=== PATIENT | female | born 1970 | race American Indian/Alaskan Native ===

== ENCOUNTER 2020-10-01 11:28 | Inpatient (IN) | payer MEDICAID, OTHER ==
[2020-10-01] MEDS ORDERED: HYDROmorphone 1 MG/1 ML INJ IV ONE (11:33)
[2020-10-01] MEDS ORDERED: ONDANSETRON 4 MG/2 ML INJ IV ONE (11:33)
--- NOTE | 2020-10-01 12:13 | Emergency Department Report ---
ED Abdominal Pain HPI - General Stated Complaint: POSS STROKE PUI?: No Time Seen by Provider: 10/01/20 11:32 - History of Present Illness Initial Comments: CC: abdominal pain HPI: THis is a 50 yo female with hx of HTN who presents with central severe abdominal pain for 3 days. Pain is 12/10. Constant. No change with movement. She underwent colonoscopy and [place] [facility] [place] evaluate for anemia. She denies hematemesis and hematochezia. EKG obtained by EMS. ST elevation reported in leads II, III, AVF. Patient denies chest pain or shortness of breath. CODE STEMI activated prior to patient's arrival. MD Complaint: abdominal pain -: Gradual, days(s) (3 days) Location: periumbilical (Central abdominal pain) Radiation: none Migration to: no migration Severity: severe Severity scale (0 -10): 10 Quality: sharp Consistency: constant Improves With: nothing Worsens With: nothing Associated Symptoms: denies: nausea, vomiting, diarrhea - Related Data Home Medications Medication Instructions Recorded Confirmed Last Taken cloNIDine [Catapres] 0.1 mg PO QHS 09/20/14 09/20/14 09/20/14 11:17 hydroCHLOROthiazide [HCTZ] 09/20/14 09/20/14 Unknown lisinopriL [Zestril] 20 mg PO QDAY 09/20/14 09/20/14 Unknown Allergies Allergy/AdvReac Type Severity Reaction Status Date / Time No Known Allergies Allergy Unverified 09/20/14 11:14 ED Review of Systems ROS: Stated complaint: POSS STROKE Other details as noted in HPI Comment: All other systems reviewed and negative Constitutional: denies: chills, fever, malaise Respiratory: denies: cough, shortness of breath Cardiovascular: denies: chest pain Gastrointestinal: abdominal pain, constipation. denies: vomiting, diarrhea, hematemesis, melena, hematochezia Musculoskeletal: denies: back pain ED Past Medical Hx - Past Medical History Previous Medical History?: Yes Hx Hypertension: Yes Hx Headaches / Migraines: Yes - Surgical History Past Surgical History?: Yes Additional Surgical History: x3 - Family History Family history: hypertension, lung disease - Social History Smoking Status: Current Every Day Smoker Substance Use Type: Alcohol, Non Opiate Pain, Prescribed - Medications Home Medications: Home Medications Medication Instructions Recorded Confirmed Last Taken Type cloNIDine [Catapres] 0.1 mg PO QHS 09/20/14 09/20/14 09/20/14 11:17 History hydroCHLOROthiazide [HCTZ] 09/20/14 09/20/14 Unknown History lisinopriL [Zestril] 20 mg PO QDAY 09/20/14 09/20/14 Unknown History ED Physical Exam - General General appearance: alert, in no apparent distress, anxious - Head Head exam: Present: atraumatic, normocephalic - Eye Eye exam: Present: normal appearance - ENT ENT exam: Present: mucous membranes moist - Neck Neck exam: Present: normal inspection, full ROM - Respiratory Respiratory exam: Present: normal lung sounds bilaterally. Absent: respiratory distress, wheezes, rales, rhonchi - Cardiovascular Cardiovascular Exam: Present: regular rate, normal rhythm, normal heart sounds. Absent: systolic murmur, diastolic murmur, rubs, gallop - GI/Abdominal GI/Abdominal exam: Present: soft, normal bowel sounds. Absent: distended, tenderness, guarding, rebound - Extremities Exam Extremities exam: Present: normal inspection - Neurological Exam Neurological exam: Present: alert, oriented X3 - Psychiatric Psychiatric exam: Present: normal affect, normal mood - Skin Skin exam: Present: warm, dry, intact, normal color. Absent: rash ED Course Vital Signs 10/01/20 10/01/20 10/01/20 11:36 11:46 12:04 Pulse Rate 93 H 80 Respiratory 19 24 Rate Blood Pressure 158/88 158/88 O2 Sat by Pulse 100 85 Oximetry 10/01/20 10/01/20 10/01/20 12:27 12:36 12:46 Pulse Rate Respiratory Rate Blood Pressure 158/88 158/88 158/88 O2 Sat by Pulse 81 L 96 98 Oximetry 10/01/20 10/01/20 10/01/20 13:00 13:16 13:30 Pulse Rate Respiratory Rate Blood Pressure 158/88 138/85 O2 Sat by Pulse 99 99 100 Oximetry 10/01/20 10/01/20 10/01/20 13:45 14:00 14:15 Pulse Rate Respiratory Rate Blood Pressure 138/85 138/85 131/76 O2 Sat by Pulse 100 99 100 Oximetry 10/01/20 10/01/20 10/01/20 14:31 14:45 15:01 Pulse Rate Respiratory Rate Blood Pressure 120/70 120/70 135/87 O2 Sat by Pulse 100 100 100 Oximetry ED Medical Decision Making - Lab Data Result diagrams: 10/01/20 11:33 10/01/20 11:33 - EKG Data -: EKG Interpreted by Me EKG shows normal: sinus rhythm, axis Rate: tachycardia - EKG Data Interpretation: LVH 10/01/20 12:10 EKG obtained 1132 EKG interpreted by me Sinus tachycardia rate 100 bpm normal axis prolonged QTC positive LVH referral made a lateral ST elevation - Radiology Data Radiology results: report reviewed Study Comments [facility] [address] [place] [address] Cat Scan Report Signed Patient: RADHA PHAN MR#: [id number] : 1970 A cct:[id number] Age/Sex: 50 / F ADM Date: 10/01/20 Loc: ED Attending Dr: Ordering Physician: Itzel Zamora MD Date of Service: 10/01/20 Procedure(s): CT abdomen pelvis wo con Accession Number(s): [id number] cc: Itzel Zamora MD CT ABDOMEN AND PELVIS WITHOUT CONTRAST INDICATION / CLINICAL INFORMATION: abdominal pain. TECHNIQUE: Axial CT images were obtained through the abdomen and pelvis without IV contrast. All CT scans at this location are performed using CT dose reduction for ALARA by means of automated exposure control. COMPARISON: None available. FINDINGS: LOWER CHEST: No significant abnormality. LIVER: No significant abnormality. GALLBLADDER: No significant abnormality. BILE DUCTS: No significant abnormality. PANCREAS: No significant abnormality. SPLEEN: No significant abnormality. ADRENALS: No significant abnormality. RIGHT KIDNEY / URETER: No significant abnormality. LEFT KIDNEY / URETER: No significant abnormality. STOMACH / SMALL BOWEL: The stomach appears normal. There are a few prominent loops of fluid-filled small bowel as seen in the right lower quadrant on series 2 image 101 but no definite findings of high-grade obstruction. COLON: No significant abnormality. APPENDIX: The appendix is identified and is gas filled PERITONEUM: No free fluid. No free air. No fluid collection. LYMPH NODES: No significant adenopathy. AORTA / ARTERIES: Mild atherosclerotic calcification without acute abnormality. IVC / VEINS: No significant abnormality. URINARY BLADDER: No significant abnormality. REPRODUCTIVE ORGANS: The uterus is enlarged and globular. No adnexal mass. ADDITIONAL FINDINGS: Tiny fat-containing umbilical hernia. SKELETAL SYSTEM: No significant abnormality. IMPRESSION: 1. Prominent loops of fluid-filled small bowel as seen in the right lower quadrant may represent low grade obstruction and/or enteritis. Recommend clinical correlation. No pneumatosis or free air. 2. Enlarged globular uterus. Signer Name: Jacob Goodwin MD Signed: 10/01/2020 12:50 PM Workstation Name: [email or web address] Transcribed By: DB Dictated By: JACOB GOODWIN MD Electronically Authenticated By: JACOB GOODWIN MD Signed Date/Time: 10/01/20 1250 DD/ 1242 TD/TT: - Medical Decision Making 1. Abdominal pain: CT abdomen pelvis reveals partial small bowel obstruction versus enteritis, CBC reveals leukocytosis without indication of perforation considering patient's previous colonoscopy. I discussed case with general surgeon Dr. Helms. She agrees that presentation not convincing for small bowel obstruction although there is a small possibility with patient surgical history.. Dr. Helms suspects patient had biopsy of the terminal ileum which would explain the CT findings pain. Due to severe pain, patient is admitted for treatment and evaluation. 2. Reported abnormal EKG: I reviewed transmitted EKG prior to patient's arrival. Patient did not have ST elevation. Patient actually had LVH with repolarization abnormality. I spoke with the delivery man. I reviewed the EKG with delivery man. Aging Department Supervisor did not read cardiac tracing. Aging Department Supervisor inappropriately used ST measurement calculation to determine presence of ST elevation. The measurement was inaccurately interpreted. Patient does not have symptoms of acute coronary syndrome. Critical care attestation.: If time is entered above; I have spent that time in minutes in the direct care of this critically ill patient, excluding procedure time. ED Disposition Clinical Impression: Ileus, Enteritis Disposition: OP ADMIT IP TO THIS HOSP Is pt being admited?: Yes Does the pt Need Aspirin: No Condition: Stable
--- NOTE | 2020-10-01 12:54 | Cat Scan Report ---
CT ABDOMEN AND PELVIS WITHOUT CONTRAST INDICATION / CLINICAL INFORMATION: abdominal pain. TECHNIQUE: Axial CT images were obtained through the abdomen and pelvis without IV contrast. All CT scans at this location are performed using CT dose reduction for ALARA by means of automated exposure control. COMPARISON: None available. FINDINGS: LOWER CHEST: No significant abnormality. LIVER: No significant abnormality. GALLBLADDER: No significant abnormality. BILE DUCTS: No significant abnormality. PANCREAS: No significant abnormality. SPLEEN: No significant abnormality. ADRENALS: No significant abnormality. RIGHT KIDNEY / URETER: No significant abnormality. LEFT KIDNEY / URETER: No significant abnormality. STOMACH / SMALL BOWEL: The stomach appears normal. There are a few prominent loops of fluid-filled sm all bowel as seen in the right lower quadrant on series 2 image 101 but no definite findings of high- grade obstruction. COLON: No significant abnormality. APPENDIX: The appendix is identified and is gas filled PERITONEUM: No free fluid. No free air. No fluid collection. LYMPH NODES: No significant adenopathy. AORTA / ARTERIES: Mild atherosclerotic calcification without acute abnormality. IVC / VEINS: No significant abnormality. URINARY BLADDER: No significant abnormality. REPRODUCTIVE ORGANS: The uterus is enlarged and globular. No adnexal mass. ADDITIONAL FINDINGS: Tiny fat-containing umbilical hernia. SKELETAL SYSTEM: No significant abnormality. IMPRESSION: 1. Prominent loops of fluid-filled small bowel as seen in the right lower quadrant may represent low grade obstruction and/or enteritis. Recommend clinical correlation. No pneumatosis or free air. 2. Enlarged globular uterus. Signer Name: Jacob Goodwin MD Signed: 10/01/2020 12:50 PM Workstation Name: [id number]
[2020-10-01 13:06] LABS: Blood Urea Nitrogen 9 mg/dL (7-17); Calcium 10.3 mg/dL (8.4-10.2); Hemolysis Index 14
[2020-10-01 13:11] LABS: Hematocrit 35.8 % (30.3-42.9); Hemoglobin 11.3 gm/dl (10.1-14.3); Mean Corpuscular HGB Conc 32 % (30-34); Mean Corpuscular Volume 74 fl (79-97); Platelet Count 304 K/mm3 (140-440); Red Blood Count 4.85 M/mm3 (3.65-5.03)
[2020-10-01 13:13] LABS: BUN/Creatinine Ratio 13
[2020-10-01 13:25] LABS: Red Cell Distribution Width 39.1 % (13.2-15.2)
[2020-10-01] MEDS ORDERED: SODIUM CHLORIDE 0.9% 1000 ML 1,000 ML IV ONE (14:07)
[2020-10-01 15:29] LABS: Anisocytosis 3+; Band Neutrophils # (Manual) 0.8 K/mm3; Hypochromasia 1+; Total Cells Counted 100
[2020-10-01 15:30] LABS: Poikilocytosis 3+; Spherocytes 1+
[2020-10-01 15:31] LABS: Ovalocytes 1+; Platelet Estimate Consistent w Auto; Target Cells 1+
--- NOTE | 2020-10-01 15:46 | Event Note ---
Date: 10/01/20 Went to see patient at 15:40 but not present in room. Case was discussed with Dr. Zhou. Ct reviewed - no free air, internal hernia, pneumatosis, free fluid - mildly dilated RLQ small bowel loops. [place] [facility] [place]. Pt being admitted for observation. Will see in am.
[2020-10-01] MEDS ORDERED: ALBUTEROL 2.5 MG/3 ML NEBU IH PRN (16:24)
[2020-10-01] MEDS ORDERED: ONDANSETRON 4 MG/2 ML INJ IV PRN (16:24)
[2020-10-01] MEDS ORDERED: cloNIDine 0.1 MG TAB PO ONE (17:40)
--- NOTE | 2020-10-01 19:09 | History and Physical Report ---
History of Present Illness Date of admission: 10/01/20 16:25 Chief complaint: My stomach hurts History of present illness: 50 YO Female with HTN, Nicotine Dependence, Migraine SARAVIA presents ED for evaluation. Patient reports "my stomach hurts". Patient states that she has experienced abdominal pain over the past 3 days with persistent symptoms over the same timeframe. Patient states the pain is 12/10, constant, not worsened with movement, not relieved with rest. EMS was notified and upon arrival the patient was found to be in distress and subsequently transported to [facility] for further care and evaluation of the aforementioned symptoms. The patient was seen and evaluated in the emergency department. All lab and imaging studies reviewed. Patient underwent CT scan of the abdomen and pelvis which showed evidence of a partial small bowel obstruction. Patient admitted to surgical fl oor due to increased risk of worsening symptoms. Surgical team consulted in ED. Patient denies fever, chills, chest pain, palpitation, productive cough, skin rash, recent ill contacts, known exposure to COVID-19. No prior admission for review. All medication listed at time of admission has been reconciled. Past History Past Medical History: hypertension, migraines Past Surgical History: Social history: single, smoking Family history: diabetes, hypertension Medications and Allergies Allergies Allergy/AdvReac Type Severity Reaction Status Date / Time No Known Allergies Allergy Verified 10/01/20 18:13 Home Medications Medication Instructions Recorded Confirmed Last Taken Type cloNIDine [Catapres] 0.1 mg PO QHS 09/20/14 09/20/14 09/20/14 11:17 History hydroCHLOROthiazide [HCTZ] 09/20/14 09/20/14 Unknown History lisinopriL [Zestril] 20 mg PO QDAY 09/20/14 09/20/14 Unknown History Active Meds: Active Medications Acetaminophen (Acetaminophen 325 Mg Tab) 650 mg PO Q4H PRN PRN Reason: Pain MILD(1-3)/Fever >100.5/SARAVIA Albuterol (Albuterol 2.5 Mg/3 Ml Nebu) 2.5 mg IH Q4H PRN PRN Reason: Shortness Of Breath Clonidine HCl (Clonidine 0.1 Mg Tab) 0.1 mg PO QHS LAY Hydromorphone HCl (Hydromorphone 1 Mg/1 Ml Inj) 0.5 mg IV Q12H PRN PRN Reason: Pain , Severe (7-10) Sodium Chloride (Nacl 0.9% 1000 Ml) 1,000 mls @ 125 mls/hr IV DIRECT LAY Lisinopril (Lisinopril 20 Mg Tab) 20 mg PO QDAY [facility] Ondansetron HCl (Ondansetron 4 Mg/2 Ml Inj) 4 mg IV Q8H PRN PRN Reason: Nausea And Vomiting Oxycodone/Acetaminophen (Oxycodone /Acetaminophen 5-325mg Tab) 1 tab PO Q12H PRN PRN Reason: Pain, Moderate (4-6) Sodium Chloride (Sodium Chloride 0.9% 10 Ml Flush Syringe) 10 ml IV BID LAY Sodium Chloride (Sodium Chloride 0.9% 10 Ml Flush Syringe) 10 ml IV PRN PRN PRN Reason: LINE FLUSH Review of Systems Constitutional: no weight loss, no weight gain, no fever, no chills Ears, nose, mouth and throat: no ear pain, no ear discharge, no decreased hearing, no nose pain, no nasal discharge Breasts: no change in shape, no swelling, no mass Cardiovascular: no chest pain, no palpitations, no syncope, no lightheadedness Respiratory: no cough, no excessive sputum, no hemoptysis Gastrointestinal: abdominal pain, no nausea, no diarrhea, no change in bowel habits, no hematemesis, no BRBPR, no melena, no loss of appetite Genitourinary Female: no pelvic pain, no flank pain, no dysuria, no urinary frequency, no urgency Rectal: no pain, no incontinence, no bleeding Musculoskeletal: no neck stiffness, no neck pain, no shooting arm pain, no shooting leg pain Integumentary: no rash, no pruritis, no sores, no wounds, no jaundice Neurological: no head injury, no paralysis, no weakness, no numbness, no tingling, no seizures, no syncope, no tremors Psychiatric: no anxiety, no memory loss, no sleep disturbances, no insomnia, no hypersomnia, no change in appetite, no suicidal ideation, no disorientation Endocrine: no cold intolerance, no polyphagia, no excessive thirst, no polyuria, no excessive sweating Hematologic/Lymphatic: no easy bruising Allergic/Immunologic: no urticaria, no allergic rhinitis, no wheezing Exam - Constitutional Vitals: Temp Pulse Resp BP Pulse Ox 82 24 178/95 100 07/26/21 18:08 10/01/20 11:46 10/01/20 18:41 10/01/20 18:41 General appearance: Present: mild distress - EENT Eyes: Present: PERRL ENT: hearing intact, clear oral mucosa - Neck Neck: Present: supple, normal ROM - Respiratory Respiratory effort: normal Respiratory: bilateral: CTA - Cardiovascular Heart Sounds: Present: S1 & S2. Absent: rub, click - Extremities Extremities: pulses symmetrical, No edema Peripheral Pulses: within normal limits - Abdominal General gastrointestinal: Present: soft, non-tender, non-distended, normal bowel sounds Female genitourinary: Present: normal - Integumentary Integumentary: Present: clear, warm, dry - Musculoskeletal Musculoskeletal: gait normal, strength equal bilaterally - Psychiatric Psychiatric: appropriate mood/affect, intact judgment & insight - Neurologic Neurologic: CNII-XII intact, moves all extremities Results - Labs CBC & Chem 7: 10/01/20 11:33 10/01/20 11:33 Labs: Abnormal lab results 10/01/20 10/01/20 Range/Units 11:33 11:33 WBC 19.3 H (4.5-11.0) K/mm3 MCV 74 L (79-97) fl MCH 23 L (28-32) pg RDW 39.1 H (13.2-15.2) % Seg Neuts % (Manual) 93.0 H (40.0-70.0) % Seg Neutrophils # Man 17.9 H (1.8-7.7) K/mm3 Lymphocytes # (Manual) 0.0 L (1.2-5.4) K/mm3 Sodium 132 L (137-145) mmol/L Potassium 3.2 L (3.6-5.0) mmol/L Chloride 97.4 L (98-107) mmol/L Glucose 101 H (65-100) mg/dL Calcium 10.3 H (8.4-10.2) mg/dL Lipase 9 L (13-60) units/L Assessment and Plan - Patient Problems (1) Partial small bowel obstruction Current Visit: Yes Status: Acute Plan to address problem: CT scan abdomen and pelvis, serial abdominal exam, bowel rest, IV fluid resuscitation therapy, pain control, surgical team consulted in ED. NG tube as per surgical team recommendations. (2) Nicotine dependence Current Visit: Yes Status: Acute Qualifiers: Nicotine product type: cigarettes Substance use status: in withdrawal Qualified Code(s): F17.213 - Nicotine dependence, cigarettes, with withdrawal Plan to address problem: Smoking cessation counseling, supportive care, behavior change counseling, +15 minutes (3) Ileus Current Visit: Yes Status: Acute Plan to address problem: Supportive care, serial abdominal exam, surgical team consulted, CT scan abdomen and pelvis, bowel rest, IV fluid resuscitation therapy, early ambulation, (4) DVT prophylaxis Current Visit: Yes Status: Acute Plan to address problem: SCD to bilateral lower extremities while in bed, patient is ambulatory
[2020-10-01] MEDS: ACETAMINOPHEN 325 MG TAB PO PRN (19:38)
[2020-10-01] MEDS: HYDROmorphone 1 MG/1 ML INJ IV PRN (19:38)
[2020-10-01 22:31] LABS: Bacteria,Urine 1+ /HPF (Negative); Bilirubin,Urine NEG (Negative); Blood,Urine LG (Negative); Color,Urine Amber (Yellow); Mucus,Urine 1+ /HPF
[2020-10-01 22:48] LABS: Amphetamine Screen,Urine Negative; Benzodiazepines Screen,Urine Negative; Cocaine Screen,Urine Negative; Methadone Screen,Urine Negative; Opiate Screen,Urine Negative
[2020-10-01 23:00] LABS: Cannabinoid Screen,Urine Positive
[2020-10-01 23:02] LABS: WBC,Urine > 182.0 /HPF (0.0-6.0)
[2020-10-01] MEDS: cloNIDine 0.1 MG TAB PO SCH (23:37)
[2020-10-01] MEDS: SODIUM CHLORIDE 0.9% 1000 ML 1,000 ML IV SCH (23:48)
[2020-10-02] MEDS ORDERED: cefTRIAXone/NS 1 GM/50 ML 1 GM/50 ML BAG IV ONE
[2020-10-02] MEDS ORDERED: MORPHINE 4 MG/1 ML INJ IV ONE (03:00)
[2020-10-02 05:46] LABS: Blood Urea Nitrogen 8 mg/dL (7-17); Hemolysis Index 0
[2020-10-02 05:49] LABS: BUN/Creatinine Ratio 11
[2020-10-02] MEDS: HYDROmorphone 1 MG/1 ML INJ IV PRN (08:39)
--- NOTE | 2020-10-02 08:45 | XRay Report ---
ABDOMEN 1 VIEW INDICATION / CLINICAL INFORMATION: Abdominal pain. COMPARISON: CT 10/01/2020. FINDINGS: TUBES / LINES: None. BOWEL GAS PATTERN: Gas distended loop of suspected distal ileum within the right lower abdomen, not s ignificantly changed from comparison CT. FREE AIR / EXTRALUMINAL GAS: None seen. ADDITIONAL FINDINGS: No significant additional findings. IMPRESSION: Gas-distended loop of suspected distal ileum within the right lower abdomen, not significantly change d from recent CT. Signer Name: Omer Griffin MD Signed: 10/02/2020 8:40 AM Workstation Name: [id number]
--- NOTE | 2020-10-02 08:49 | Progress Note ---
Assessment and Plan Assessment and plan: -- Partial small bowel obstruction Current Visit: Yes Status: Acute CT scan abdomen and pelvis, serial abdominal exam, bowel rest, IV fluid resuscitation therapy, pain control, surgical team consulted NG tube as per surgical team recommendations. --Hypokalemia; Current Visit: Yes Status: Acute replenished with IV KCl 10 mEq x 4 doses total 40 mEq Closely monitor electrolytes --Nicotine dependence Current Visit: Yes Status: Acute Smoking cessation counseling, supportive care, behavior change counseling, +15 minutes --Ileus Current Visit: Yes Status: Acute Supportive care, serial abdominal exam, surgical team consulted, CT scan abdomen and pelvis, bowel rest, IV fluid resuscitation therapy, early ambulation, --DVT prophylaxis Current Visit: Yes Status: Acute SCD to bilateral lower extremities while in bed, patient is ambulatory We will follow surgery evaluation recommendations Closely monitor the patient and adjust management as needed Plan of care reviewed with the patient and her nurse History Interval history: I have seen and examined the patient at the bedside Patient's chart and medications reviewed Patient is admitted with small bowel obstruction N.p.o. status Vital signs noted Hospitalist Physical - Constitutional Vitals: Temp Pulse Resp BP Pulse Ox 99.0 F 74 16 164/92 97 10/02/20 08:32 10/02/20 08:32 10/02/20 08:32 10/02/20 08:32 10/02/20 08:32 General appearance: Present: mild distress, well-nourished - EENT Eyes: Present: PERRL, EOM intact - Neck Neck: Present: supple, normal ROM - Respiratory Respiratory effort: normal Respiratory: bilateral: diminished, negative: rales, rhonchi, wheezing - Cardiovascular Rhythm: regular Heart Sounds: Present: S1 & S2 - Extremities Extremities: no ischemia, No edema - Abdominal General gastrointestinal: soft, non-tender, tender (Mild vague tenderness no guarding no rigidity), non-distended - Integumentary Integumentary: Present: clear, warm - Psychiatric Psychiatric: appropriate mood/affect, cooperative - Neurologic Neurologic: CNII-XII intact, moves all extremities Results - Labs CBC & Chem 7: 10/02/20 08:47 10/02/20 04:38 Labs: Laboratory Last Values WBC 19.3 K/mm3 (4.5-11.0) H 10/01/20 11:33 RBC 4.85 M/mm3 (3.65-5.03) 10/01/20 11:33 Hgb 11.3 gm/dl (10.1-14.3) 10/01/20 11:33 Hct 35.8 % (30.3-42.9) 10/01/20 11:33 MCV 74 fl (79-97) L 10/01/20 11:33 MCH 23 pg (28-32) L 10/01/20 11:33 MCHC 32 % (30-34) 10/01/20 11:33 RDW 39.1 % (13.2-15.2) H 10/01/20 11:33 Plt Count 304 K/mm3 (140-440) 10/01/20 11:33 Add Manual Diff Complete 10/01/20 11:33 Total Counted 100 10/01/20 11:33 Seg Neuts % (Manual) 93.0 % (40.0-70.0) H 10/01/20 11:33 Band Neutrophils % 4.0 % 10/01/20 11:33 Monocytes % (Manual) 2.0 % (0.0-7.3) 10/01/20 11:33 Eosinophils % (Manual) 1.0 % (0.0-4.3) 10/01/20 11:33 Nucleated RBC % Not Reportable 10/01/20 11:33 Seg Neutrophils # Man 17.9 K/mm3 (1.8-7.7) H 10/01/20 11:33 Band Neutrophils # 0.8 K/mm3 10/01/20 11:33 Lymphocytes # (Manual) 0.0 K/mm3 (1.2-5.4) L 10/01/20 11:33 Abs React Lymphs (Man) 0.0 K/mm3 10/01/20 11:33 Monocytes # (Manual) 0.4 K/mm3 (0.0-0.8) 10/01/20 11:33 Eosinophils # (Manual) 0.2 K/mm3 (0.0-0.4) 10/01/20 11:33 Basophils # (Manual) 0.0 K/mm3 (0.0-0.1) 10/01/20 11:33 Metamyelocytes # 0.0 K/mm3 10/01/20 11:33 Myelocytes # 0.0 K/mm3 10/01/20 11:33 Promyelocytes # 64.0 K/mm3 10/01/20 11:33 Blast Cells # 0.0 K/mm3 10/01/20 11:33 WBC Morphology Not Reportable 10/01/20 11:33 Hypersegmented Neuts Not Reportable 10/01/20 11:33 Hyposegmented Neuts Not Reportable 10/01/20 11:33 Hypogranular Neuts Not Reportable 10/01/20 11:33 Smudge Cells Not Reportable 10/01/20 11:33 Toxic Granulation Not Reportable 10/01/20 11:33 Toxic Vacuolation Not Reportable 10/01/20 11:33 Dohle Bodies Not Reportable 10/01/20 11:33 Pelger-Huet Anomaly Not Reportable 10/01/20 11:33 Alphonso Rods Not Reportable 10/01/20 11:33 Platelet Estimate Consistent w auto 10/01/20 11:33 Clumped Platelets Not Reportable 10/01/20 11:33 Plt Clumps, EDTA Not Reportable 10/01/20 11:33 Large Platelets Not Reportable 10/01/20 11:33 Giant Platelets Not Reportable 10/01/20 11:33 Platelet Satelliting Not Reportable 10/01/20 11:33 Plt Morphology Comment Not Reportable 10/01/20 11:33 RBC Morphology Not Reportable 10/01/20 11:33 Dimorphic RBCs Not Reportable 10/01/20 11:33 Polychromasia Not Reportable 10/01/20 11:33 Hypochromasia 1+ 10/01/20 11:33 Poikilocytosis 3+ 10/01/20 11:33 Anisocytosis 3+ 10/01/20 11:33 Microcytosis 1+ 10/01/20 11:33 Macrocytosis Not Reportable 10/01/20 11:33 Spherocytes 1+ 10/01/20 11:33 Pappenheimer Bodies Not Reportable 10/01/20 11:33 Sickle Cells Not Reportable 10/01/20 11:33 Target Cells 1+ 10/01/20 11:33 Tear Drop Cells Not Reportable 10/01/20 11:33 Ovalocytes 1+ 10/01/20 11:33 Helmet Cells Not Reportable 10/01/20 11:33 [place] Bodies Not Reportable 10/01/20 11:33 [place] Rings Not Reportable 10/01/20 11:33 [place] Cells Not Reportable 10/01/20 11:33 Bite Cells Not Reportable 10/01/20 11:33 Crenated Cell Not Reportable 10/01/20 11:33 Elliptocytes Not Reportable 10/01/20 11:33 Acanthocytes (Spur) Not Reportable 10/01/20 11:33 Rouleaux Not Reportable 10/01/20 11:33 Hemoglobin C Crystals Not Reportable 10/01/20 11:33 Schistocytes Not Reportable 10/01/20 11:33 Malaria parasites Not Reportable 10/01/20 11:33 Jude Bodies Not Reportable 10/01/20 11:33 Hem Pathologist Commnt No 10/01/20 11:33 Sodium 135 mmol/L (137-145) L 10/02/20 04:38 Potassium 3.3 mmol/L (3.6-5.0) L 10/02/20 04:38 Chloride 104.3 mmol/L (98-107) 10/02/20 04:38 Carbon Dioxide 20 mmol/L (22-30) L 10/02/20 04:38 Anion Gap 14 mmol/L 10/02/20 04:38 BUN 8 mg/dL (7-17) 10/02/20 04:38 Creatinine 0.7 mg/dL (0.6-1.2) 10/02/20 04:38 Estimated GFR > 60 ml/min 10/02/20 04:38 BUN/Creatinine Ratio 11 % 10/02/20 04:38 Glucose 77 mg/dL (65-100) 10/02/20 04:38 Calcium 9.0 mg/dL (8.4-10.2) 10/02/20 04:38 Lipase 9 units/L (13-60) L 10/01/20 11:33 Urine Color Lizabeth (Yellow) 10/01/20 22:03 Urine Turbidity Cloudy (Clear) 10/01/20 22:03 Urine pH 5.0 (5.0-7.0) 10/01/20 22:03 Ur Specific [place] 1.014 (1.003-1.030) 10/01/20 22:03 Urine Protein 100 mg/dl mg/dL (Negative) 10/01/20 22:03 Urine Glucose (UA) Neg mg/dL (Negative) 10/01/20 22:03 Urine Ketones Tr mg/dL (Negative) 10/01/20 22:03 Urine Blood Lg (Negative) 10/01/20 22:03 Urine Nitrite Pos (Negative) 10/01/20 22:03 Urine Bilirubin Neg (Negative) 10/01/20 22:03 Urine Urobilinogen 4.0 mg/dL (<2.0) 10/01/20 22:03 Ur Leukocyte Esterase Lg (Negative) 10/01/20 22:03 Urine WBC (Auto) > 182.0 /HPF (0.0-6.0) H 10/01/20 22:03 Urine RBC (Auto) 75.0 /HPF (0.0-6.0) 10/01/20 22:03 U Epithel Cells (Auto) 3.0 /HPF (0-13.0) 10/01/20 22:03 Urine Bacteria (Auto) 1+ /HPF (Negative) 10/01/20 22:03 Urine WBC Clumps 3+ /HPF 10/01/20 22:03 Urine Mucus 1+ /HPF 10/01/20 22:03 Urine Yeast (Budding) 2+ /HPF 10/01/20 22:03 Urine Opiates Screen Negative 10/01/20 22:03 Urine Methadone Screen Negative 10/01/20 22:03 Ur Barbiturates Screen Negative 10/01/20 22:03 Ur Phencyclidine Scrn Negative 10/01/20 22:03 Ur Amphetamines Screen Negative 10/01/20 22:03 U Benzodiazepines Scrn Negative 10/01/20 22:03 Urine Cocaine Screen Negative 10/01/20 22:03 U Marijuana (THC) Screen Positive 10/01/20 22:03 Drugs of Abuse Note Disclamer 10/01/20 22:03 Active Medications - Current Medications Current Medications: Generic Name Dose Route Start Last Admin Trade Name Freq PRN Reason Stop Dose Admin Acetaminophen 650 mg 10/01/20 16:24 10/01/20 19:38 Acetaminophen 325 Mg Tab PO 650 mg Q4H PRN Administration Pain MILD(1-3)/Fever >100.5/SARAVIA Albuterol 2.5 mg 10/01/20 16:24 Albuterol 2.5 Mg/3 Ml Nebu IH Q4H PRN Shortness Of Breath Clonidine HCl 0.1 mg 10/01/20 22:00 10/01/20 23:37 Clonidine 0.1 Mg Tab PO Not Given QHS LAY Hydromorphone HCl 0.5 mg 10/01/20 16:24 10/02/20 08:39 Hydromorphone 1 Mg/1 Ml Inj IV 0.5 mg Q12H PRN Administration Pain , Severe (7-10) Sodium Chloride 1,000 mls @ 125 mls/hr 10/01/20 16:30 10/02/20 08:36 Nacl 0.9% 1000 Ml IV Infused DIRECT LAY Infusion Lisinopril 20 mg 10/02/20 10:00 Lisinopril 20 Mg Tab PO QDAY PENDING SALE TO [facility] Ondansetron HCl 4 mg 10/01/20 16:24 Ondansetron 4 Mg/2 Ml Inj IV Q8H PRN Nausea And Vomiting Oxycodone/Acetaminophen 1 tab 10/01/20 16:24 Oxycodone /Acetaminophen 5-325mg Tab PO Q12H PRN Pain, Moderate (4-6) Sodium Chloride 10 ml 10/01/20 22:00 10/01/20 22:05 Sodium Chloride 0.9% 10 Ml Flush Syringe IV 10 ml BID LAY Administration Sodium Chloride 10 ml 10/01/20 16:24 Sodium Chloride 0.9% 10 Ml Flush Syringe IV PRN PRN LINE FLUSH
[2020-10-02 09:07] LABS: Hematocrit 31.6 % (30.3-42.9); Hemoglobin 9.7 gm/dl (10.1-14.3); Mean Corpuscular HGB Conc 31 % (30-34); Mean Corpuscular Volume 74 fl (79-97); Platelet Count 360 K/mm3 (140-440); Red Blood Count 4.27 M/mm3 (3.65-5.03)
[2020-10-02 09:25] LABS: Red Cell Distribution Width 39.3 % (13.2-15.2)
--- NOTE | 2020-10-02 10:18 | Electrocardiograph Report ---
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
[2020-10-02] MEDS: POTASSIUM CHLORIDE 10 MEQ 10 MEQ/100 ML BAG IV SCH ×4 (10:54→14:15)
[2020-10-02] MEDS: LISINOPRIL 20 MG TAB PO SCH (10:54)
--- NOTE | 2020-10-02 11:21 | Consultation ---
History of Present Illness Consult date: 10/02/20 Chief complaint: Abdominal pain - History of present illness History of present illness: 50-year-old female with past medical history of hypertension who presented to the ER yesterday for abdominal pain. The patient states she was having severe sharp right lower quadrant pain radiating to the suprapubic area into the back that started 4 days ago. The patient states that 1 week ago she had a colonoscopy and endoscopy for work-up of anemia along with blood transfusion. Patient states biopsies were performed and she was given an Rx for protonix. She states that a few days later she started to experience this abdominal pain. She has never had pain like this in the past. She states that it feels better when she compresses on the abdomen. She has not had a bowel movement since the colonoscopy. She is passing flatus. She states it has been difficult for her to eat because it feels like the pain is made worse. She denies nausea or vomiting. She denies fevers or chills. Today she states that pain is mildly improved. She feels hungry. Past History Past Medical History: hypertension, migraines Past Surgical History: Social history: single, smoking Family history: diabetes, hypertension Medications and Allergies Allergies Allergy/AdvReac Type Severity Reaction Status Date / Time No Known Allergies Allergy Verified 10/01/20 18:13 Home Medications Medication Instructions Recorded Confirmed Last Taken Type hydroCHLOROthiazide [HCTZ] 25 mg DAILY 09/20/14 10/02/20 Unknown History Amlodipine Besylate [Norvasc] 10 mg PO DAILY 10/02/20 10/02/20 Unknown History Active Meds: Active Medications Acetaminophen (Acetaminophen 325 Mg Tab) 650 mg PO Q4H PRN PRN Reason: Pain MILD(1-3)/Fever >100.5/SARAVIA Last Admin: 10/01/20 19:38 Dose: 650 mg Documented by: Albuterol (Albuterol 2.5 Mg/3 Ml Nebu) 2.5 mg IH Q4H PRN PRN Reason: Shortness Of Breath Bisacodyl (Bisacodyl 10 Mg Rect Supp) 10 mg ME ONCE ONE Stop: 10/02/20 11:18 Clonidine HCl (Clonidine 0.1 Mg Tab) 0.1 mg PO QHS LAY Last Admin: 10/01/20 23:37 Dose: Not Given Documented by: Hydromorphone HCl (Hydromorphone 1 Mg/1 Ml Inj) 0.5 mg IV Q12H PRN PRN Reason: Pain , Severe (7-10) Last Admin: 10/02/20 08:39 Dose: 0.5 mg Documented by: Sodium Chloride (Nacl 0.9% 1000 Ml) 1,000 mls @ 125 mls/hr IV DIRECT [facility] Last Infusion: 10/02/20 08:36 Dose: Infused Documented by: Potassium Chloride (Kcl 10meq/100ml) 10 meq in 100 mls @ 100 mls/hr IV Q1H [facility] Stop: 10/02/20 13:59 Last Admin: 10/02/20 10:54 Dose: 100 mls/hr Documented by: Lisinopril (Lisinopril 20 Mg Tab) 20 mg PO QDAY [facility] Last Admin: 10/02/20 10:54 Dose: Not Given Documented by: Ondansetron HCl (Ondansetron 4 Mg/2 Ml Inj) 4 mg IV Q8H PRN PRN Reason: Nausea And Vomiting Oxycodone/Acetaminophen (Oxycodone /Acetaminophen 5-325mg Tab) 1 tab PO Q12H PRN PRN Reason: Pain, Moderate (4-6) Pantoprazole Sodium (Pantoprazole 40 Mg Tab) 40 mg PO QDAC [facility] Sodium Chloride (Sodium Chloride 0.9% 10 Ml Flush Syringe) 10 ml IV BID [facility] Last Admin: 10/02/20 10:54 Dose: 10 ml Documented by: Sodium Chloride (Sodium Chloride 0.9% 10 Ml Flush Syringe) 10 ml IV PRN PRN PRN Reason: LINE FLUSH Review of Systems All systems: negative (10 point ROS performed and negative except for that listed in HPI) Exam Vital Signs Pulse Resp 93 H 19 10/01/20 11:36 10/01/20 11:36 Narrative exam: Gen.: Awake, alert, oriented x3. No apparent distress ENT: Trachea midline. No lymphadenopathy. No scleral icterus or conjunctival pallor CV: S1, S2 present Respiratory: No audible wheezes Abdomen: Soft, nondistended, mild tenderness to palpation of the right upper quadrant, right lower quadrant, suprapubic region, right flank. No rebound, rigidity, guarding Extremities: No clubbing, cyanosis, edema Results - Labs 10/02/20 08:47 10/02/20 04:38 Abnormal lab results 10/01/20 10/01/20 10/01/20 Range/Units 11:33 11:33 22:03 WBC 19.3 H (4.5-11.0) K/mm3 Hgb (10.1-14.3) gm/dl MCV 74 L (79-97) fl MCH 23 L (28-32) pg RDW 39.1 H (13.2-15.2) % Seg Neuts % (Manual) 93.0 H (40.0-70.0) % Seg Neutrophils # Man 17.9 H (1.8-7.7) K/mm3 Lymphocytes # (Manual) 0.0 L (1.2-5.4) K/mm3 Sodium 132 L (137-145) mmol/L Potassium 3.2 L (3.6-5.0) mmol/L Chloride 97.4 L (98-107) mmol/L Carbon Dioxide (22-30) mmol/L Glucose 101 H (65-100) mg/dL Calcium 10.3 H (8.4-10.2) mg/dL Lipase 9 L (13-60) units/L Urine WBC (Auto) > 182.0 H (0.0-6.0) /HPF 10/02/20 10/02/20 Range/Units 04:38 08:47 WBC 19.5 H (4.5-11.0) K/mm3 Hgb 9.7 L (10.1-14.3) gm/dl MCV 74 L (79-97) fl MCH 23 L (28-32) pg RDW 39.3 H (13.2-15.2) % Seg Neuts % (Manual) (40.0-70.0) % Seg Neutrophils # Man (1.8-7.7) K/mm3 Lymphocytes # (Manual) (1.2-5.4) K/mm3 Sodium 135 L (137-145) mmol/L Potassium 3.3 L (3.6-5.0) mmol/L Chloride (98-107) mmol/L Carbon Dioxide 20 L (22-30) mmol/L Glucose (65-100) mg/dL Calcium (8.4-10.2) mg/dL Lipase (13-60) units/L Urine WBC (Auto) (0.0-6.0) /HPF Diabetes panel 10/01/20 10/02/20 Range/Units 11:33 04:38 Sodium 132 L 135 L (137-145) mmol/L Potassium 3.2 L 3.3 L (3.6-5.0) mmol/L Chloride 97.4 L 104.3 (98-107) mmol/L Carbon Dioxide 23 20 L (22-30) mmol/L BUN 9 8 (7-17) mg/dL Creatinine 0.7 0.7 (0.6-1.2) mg/dL Glucose 101 H 77 (65-100) mg/dL Calcium 10.3 H 9.0 (8.4-10.2) mg/dL Calcium panel 10/01/20 10/02/20 Range/Units 11:33 04:38 Calcium 10.3 H 9.0 (8.4-10.2) mg/dL Pituitary panel 10/01/20 10/02/20 Range/Units 11:33 04:38 Sodium 132 L 135 L (137-145) mmol/L Potassium 3.2 L 3.3 L (3.6-5.0) mmol/L Chloride 97.4 L 104.3 (98-107) mmol/L Carbon Dioxide 23 20 L (22-30) mmol/L BUN 9 8 (7-17) mg/dL Creatinine 0.7 0.7 (0.6-1.2) mg/dL Glucose 101 H 77 (65-100) mg/dL Calcium 10.3 H 9.0 (8.4-10.2) mg/dL Adrenal panel 10/01/20 10/02/20 Range/Units 11:33 04:38 Sodium 132 L 135 L (137-145) mmol/L Potassium 3.2 L 3.3 L (3.6-5.0) mmol/L Chloride 97.4 L 104.3 (98-107) mmol/L Carbon Dioxide 23 20 L (22-30) mmol/L BUN 9 8 (7-17) mg/dL Creatinine 0.7 0.7 (0.6-1.2) mg/dL Glucose 101 H 77 (65-100) mg/dL Calcium 10.3 H 9.0 (8.4-10.2) mg/dL - Imaging Abdominal x-ray: report reviewed, image reviewed CT scan - abdomen: report reviewed, image reviewed CT scan - pelvis: report reviewed, image reviewed Assessment and Plan 50-year-old female with abdominal pain, UTI Images reviewed - no evidence for obstruction, perforated viscus, free fluid Plan: 1. start CLD, adv as morgan 2. PPI 3. prn pain control 4. IV abx for UTI per 1' service 5. Urine cx 6. OOB/ambulate 7. bowel regimen 8. No acute surgical intervention indicated at this time. Thank you, please call with questions.
[2020-10-02] MEDS ORDERED: hydrALAZINE 20 MG/1 ML INJ IV ONE (12:01)
[2020-10-02] MEDS: oxyCODONE /ACETAMINOPHEN 5-325MG TAB PO PRN ×2 (12:22→21:59)
[2020-10-02] MEDS: PANTOPRAZOLE 40 MG TAB PO SCH (12:22)
[2020-10-02 13:56] LABS: Albumin 2.8 g/dL (3.9-5); Bilirubin,Direct 0.2 mg/dL (0-0.2)
[2020-10-02] MEDS: ACETAMINOPHEN 325 MG TAB PO PRN (19:28)
[2020-10-02] MEDS: cloNIDine 0.1 MG TAB PO SCH (21:59)
[2020-10-03] MEDS: PANTOPRAZOLE 40 MG TAB PO SCH (09:10)
[2020-10-03] MEDS: LISINOPRIL 20 MG TAB PO SCH (09:10)
[2020-10-03] MEDS: HYDROmorphone 1 MG/1 ML INJ IV PRN ×2 (09:11→20:18)
--- NOTE | 2020-10-03 09:15 | Progress Note ---
Assessment and Plan Assessment and plan: --Urinary tract infection; Current Visit: Yes Status: Acute Due to urinary tract infection, follow cultures Continue [place] antibiotic Rocephin -- Partial small bowel obstruction Current Visit: Yes Status: Acute CT scan abdomen and pelvis, serial abdominal exam, bowel rest, Surgery evaluation recommendations noted and appreciated; no evidence of small bowel obstruction Started on clear liquids, no surgical intervention at this point, supportive care Patient on clear liquid diet, advance as tolerated --Leukocytosis; Current Visit: Yes Status: Acute Doubly secondary to urinary tract infection On antibiotics --Hypokalemia; resolved Current Visit: Yes Status: Acute replenished with IV KCl 10 mEq x 4 doses total 40 mEq Closely monitor electrolytes --Severe malnutrition/hypoalbuminemia Current Visit: Yes Status: Acute albumin 2.8 Nutrition supplements, supportive care, nutrition consult --Nicotine dependence Current Visit: Yes Status: Acute Smoking cessation counseling, supportive care, behavior change counseling, +15 minutes --DVT prophylaxis Current Visit: Yes Status: Acute SCD to bilateral lower extremities while in bed, patient is ambulatory We will follow surgery evaluation recommendations Closely monitor the patient and adjust management as needed Plan of care reviewed with the patient and her nurse 50-year-old female patient was admitted with abdominal pain ,small bowel obstruction and UTI Surgery evaluated the patient, small bowel obstruction resolved, surgery cleared for discharge, however patient has UTI, leukocytosis, on empiric antibiotics, will follow cultures and adjust the management. 10/03/2020; Follow urine cultures, continue empiric antibiotics History Interval history: I have seen and examined the patient at the bedside Patient's chart and medications reviewed Patient small bowel obstruction completely resolved Complains of some vague abdominal pain and nausea Vital signs reviewed Hospitalist Physical - Constitutional Vitals: Temp Pulse Resp BP Pulse Ox 98.1 F 57 L 18 140/75 100 10/03/20 05:11 10/03/20 05:11 10/03/20 05:11 10/03/20 05:11 10/03/20 05:11 General appearance: Present: mild distress, well-nourished - EENT Eyes: Present: PERRL, EOM intact - Neck Neck: Present: supple, normal ROM - Respiratory Respiratory effort: normal Respiratory: bilateral: diminished, negative: rales, rhonchi, wheezing - Cardiovascular Rhythm: regular Heart Sounds: Present: S1 & S2 - Extremities Extremities: no ischemia, No edema - Abdominal General gastrointestinal: soft, non-tender, non-distended, normal bowel sounds - Integumentary Integumentary: Present: clear, warm - Psychiatric Psychiatric: appropriate mood/affect, cooperative - Neurologic Neurologic: CNII-XII intact, moves all extremities Results - Labs CBC & Chem 7: 10/03/20 10:00 10/03/20 10:00 Labs: Laboratory Last Values WBC 19.5 K/mm3 (4.5-11.0) H 10/02/20 08:47 RBC 4.27 M/mm3 (3.65-5.03) 10/02/20 08:47 Hgb 9.7 gm/dl (10.1-14.3) L 10/02/20 08:47 Hct 31.6 % (30.3-42.9) 10/02/20 08:47 MCV 74 fl (79-97) L 10/02/20 08:47 MCH 23 pg (28-32) L 10/02/20 08:47 MCHC 31 % (30-34) 10/02/20 08:47 RDW 39.3 % (13.2-15.2) H 10/02/20 08:47 Plt Count 360 K/mm3 (140-440) 10/02/20 08:47 Add Manual Diff Complete 10/01/20 11:33 Total Counted 100 10/01/20 11:33 Seg Neuts % (Manual) 93.0 % (40.0-70.0) H 10/01/20 11:33 Band Neutrophils % 4.0 % 10/01/20 11:33 Monocytes % (Manual) 2.0 % (0.0-7.3) 10/01/20 11:33 Eosinophils % (Manual) 1.0 % (0.0-4.3) 10/01/20 11:33 Nucleated RBC % Not Reportable 10/01/20 11:33 Seg Neutrophils # Man 17.9 K/mm3 (1.8-7.7) H 10/01/20 11:33 Band Neutrophils # 0.8 K/mm3 10/01/20 11:33 Lymphocytes # (Manual) 0.0 K/mm3 (1.2-5.4) L 10/01/20 11:33 Abs React Lymphs (Man) 0.0 K/mm3 10/01/20 11:33 Monocytes # (Manual) 0.4 K/mm3 (0.0-0.8) 10/01/20 11:33 Eosinophils # (Manual) 0.2 K/mm3 (0.0-0.4) 10/01/20 11:33 Basophils # (Manual) 0.0 K/mm3 (0.0-0.1) 10/01/20 11:33 Metamyelocytes # 0.0 K/mm3 10/01/20 11:33 Myelocytes # 0.0 K/mm3 10/01/20 11:33 Promyelocytes # 64.0 K/mm3 10/01/20 11:33 Blast Cells # 0.0 K/mm3 10/01/20 11:33 WBC Morphology Not Reportable 10/01/20 11:33 Hypersegmented Neuts Not Reportable 10/01/20 11:33 Hyposegmented Neuts Not Reportable 10/01/20 11:33 Hypogranular Neuts Not Reportable 10/01/20 11:33 Smudge Cells Not Reportable 10/01/20 11:33 Toxic Granulation Not Reportable 10/01/20 11:33 Toxic Vacuolation Not Reportable 10/01/20 11:33 Dohle Bodies Not Reportable 10/01/20 11:33 Pelger-Huet Anomaly Not Reportable 10/01/20 11:33 Alphonso Rods Not Reportable 10/01/20 11:33 Platelet Estimate Consistent w auto 10/01/20 11:33 Clumped Platelets Not Reportable 10/01/20 11:33 Plt Clumps, EDTA Not Reportable 10/01/20 11:33 Large Platelets Not Reportable 10/01/20 11:33 Giant Platelets Not Reportable 10/01/20 11:33 Platelet Satelliting Not Reportable 10/01/20 11:33 Plt Morphology Comment Not Reportable 10/01/20 11:33 RBC Morphology Not Reportable 10/01/20 11:33 Dimorphic RBCs Not Reportable 10/01/20 11:33 Polychromasia Not Reportable 10/01/20 11:33 Hypochromasia 1+ 10/01/20 11:33 Poikilocytosis 3+ 10/01/20 11:33 Anisocytosis 3+ 10/01/20 11:33 Microcytosis 1+ 10/01/20 11:33 Macrocytosis Not Reportable 10/01/20 11:33 Spherocytes 1+ 10/01/20 11:33 Pappenheimer Bodies Not Reportable 10/01/20 11:33 Sickle Cells Not Reportable 10/01/20 11:33 Target Cells 1+ 10/01/20 11:33 Tear Drop Cells Not Reportable 10/01/20 11:33 Ovalocytes 1+ 10/01/20 11:33 Helmet Cells Not Reportable 10/01/20 11:33 [place] Bodies Not Reportable 10/01/20 11:33 [place] Rings Not Reportable 10/01/20 11:33 [place] Cells Not Reportable 10/01/20 11:33 Bite Cells Not Reportable 10/01/20 11:33 Crenated Cell Not Reportable 10/01/20 11:33 Elliptocytes Not Reportable 10/01/20 11:33 Acanthocytes (Spur) Not Reportable 10/01/20 11:33 Rouleaux Not Reportable 10/01/20 11:33 Hemoglobin C Crystals Not Reportable 10/01/20 11:33 Schistocytes Not Reportable 10/01/20 11:33 Malaria parasites Not Reportable 10/01/20 11:33 Jude Bodies Not Reportable 10/01/20 11:33 Hem Pathologist Commnt No 10/01/20 11:33 Sodium 135 mmol/L (137-145) L 10/02/20 04:38 Potassium 3.3 mmol/L (3.6-5.0) L 10/02/20 04:38 Chloride 104.3 mmol/L (98-107) 10/02/20 04:38 Carbon Dioxide 20 mmol/L (22-30) L 10/02/20 04:38 Anion Gap 14 mmol/L 10/02/20 04:38 BUN 8 mg/dL (7-17) 10/02/20 04:38 Creatinine 0.7 mg/dL (0.6-1.2) 10/02/20 04:38 Estimated GFR > 60 ml/min 10/02/20 04:38 BUN/Creatinine Ratio 11 % 10/02/20 04:38 Glucose 77 mg/dL (65-100) 10/02/20 04:38 Calcium 9.0 mg/dL (8.4-10.2) 10/02/20 04:38 Magnesium 2.10 mg/dL (1.7-2.3) 10/02/20 08:55 Total Bilirubin 0.70 mg/dL (0.1-1.2) 10/02/20 08:47 Direct Bilirubin 0.2 mg/dL (0-0.2) 10/02/20 08:47 Indirect Bilirubin 0.5 mg/dL 10/02/20 08:47 AST 19 units/L (5-40) 10/02/20 08:47 ALT 9 units/L (7-56) 10/02/20 08:47 Alkaline Phosphatase 77 units/L (35-129) 10/02/20 08:47 Total Protein 6.4 g/dL (6.3-8.2) 10/02/20 08:47 Albumin 2.8 g/dL (3.9-5) L 10/02/20 08:47 Albumin/Globulin Ratio 0.8 % 10/02/20 08:47 Lipase 9 units/L (13-60) L 10/01/20 11:33 Urine Color Lizabeth (Yellow) 10/01/20 22:03 Urine Turbidity Cloudy (Clear) 10/01/20 22:03 Urine pH 5.0 (5.0-7.0) 10/01/20 22:03 Ur Specific [place] 1.014 (1.003-1.030) 10/01/20 22:03 Urine Protein 100 mg/dl mg/dL (Negative) 10/01/20 22:03 Urine Glucose (UA) Neg mg/dL (Negative) 10/01/20 22:03 Urine Ketones Tr mg/dL (Negative) 10/01/20 22:03 Urine Blood Lg (Negative) 10/01/20 22:03 Urine Nitrite Pos (Negative) 10/01/20 22:03 Urine Bilirubin Neg (Negative) 10/01/20 22:03 Urine Urobilinogen 4.0 mg/dL (<2.0) 10/01/20 22:03 Ur Leukocyte Esterase Lg (Negative) 10/01/20 22:03 Urine WBC (Auto) > 182.0 /HPF (0.0-6.0) H 10/01/20 22:03 Urine RBC (Auto) 75.0 /HPF (0.0-6.0) 10/01/20 22:03 U Epithel Cells (Auto) 3.0 /HPF (0-13.0) 10/01/20 22:03 Urine Bacteria (Auto) 1+ /HPF (Negative) 10/01/20 22:03 Urine WBC Clumps 3+ /HPF 10/01/20 22:03 Urine Mucus 1+ /HPF 10/01/20 22:03 Urine Yeast (Budding) 2+ /HPF 10/01/20 22:03 Urine Opiates Screen Negative 10/01/20 22:03 Urine Methadone Screen Negative 10/01/20 22:03 Ur Barbiturates Screen Negative 10/01/20 22:03 Ur Phencyclidine Scrn Negative 10/01/20 22:03 Ur Amphetamines Screen Negative 10/01/20 22:03 U Benzodiazepines Scrn Negative 10/01/20 22:03 Urine Cocaine Screen Negative 10/01/20 22:03 U Marijuana (THC) Screen Positive 10/01/20 22:03 Drugs of Abuse Note Disclamer 10/01/20 22:03 Active Medications - Current Medications Current Medications: Generic Name Dose Route Start Last Admin Trade Name Freq PRN Reason Stop Dose Admin Acetaminophen 650 mg 10/01/20 16:24 10/02/20 19:28 Acetaminophen 325 Mg Tab PO 650 mg Q4H PRN Administration Pain MILD(1-3)/Fever >100.5/SARAVIA Albuterol 2.5 mg 10/01/20 16:24 Albuterol 2.5 Mg/3 Ml Nebu IH Q4H PRN Shortness Of Breath Clonidine HCl 0.1 mg 10/01/20 22:00 10/02/20 21:59 Clonidine 0.1 Mg Tab PO 0.1 mg QHS LAY Administration Hydromorphone HCl 0.5 mg 10/01/20 16:24 10/02/20 08:39 Hydromorphone 1 Mg/1 Ml Inj IV 0.5 mg Q12H PRN Administration Pain , Severe (7-10) Sodium Chloride 1,000 mls @ 125 mls/hr 10/01/20 16:30 10/02/20 08:36 Nacl 0.9% 1000 Ml IV Infused DIRECT LAY Infusion Lisinopril 20 mg 10/02/20 10:00 10/02/20 10:54 Lisinopril 20 Mg Tab PO Not Given QDAY LAY Ondansetron HCl 4 mg 10/01/20 16:24 Ondansetron 4 Mg/2 Ml Inj IV Q8H PRN Nausea And Vomiting Oxycodone/Acetaminophen 1 tab 10/01/20 16:24 10/02/20 21:59 Oxycodone /Acetaminophen 5-325mg Tab PO 1 tab Q12H PRN Administration Pain, Moderate (4-6) Pantoprazole Sodium 40 mg 10/02/20 12:00 10/03/20 09:10 Pantoprazole 40 Mg Tab PO 40 mg QDAC LAY Administration Sodium Chloride 10 ml 10/01/20 22:00 10/02/20 22:03 Sodium Chloride 0.9% 10 Ml Flush Syringe IV 10 ml BID LAY Administration Sodium Chloride 10 ml 10/01/20 16:24 Sodium Chloride 0.9% 10 Ml Flush Syringe IV PRN PRN LINE FLUSH
[2020-10-03] MEDS: SODIUM CHLORIDE 0.9% 1000 ML 1,000 ML IV SCH (09:18)
[2020-10-03 10:53] LABS: Blood Urea Nitrogen 5 mg/dL (7-17); Calcium 9.7 mg/dL (8.4-10.2); Hemolysis Index 2
[2020-10-03 10:56] LABS: BUN/Creatinine Ratio 10; Hematocrit 29.9 % (30.3-42.9); Hemoglobin 9.3 gm/dl (10.1-14.3); Mean Corpuscular HGB Conc 31 % (30-34); Mean Corpuscular Volume 75 fl (79-97); Platelet Count 366 K/mm3 (140-440); Red Blood Count 4.01 M/mm3 (3.65-5.03)
[2020-10-03 11:14] LABS: Red Cell Distribution Width 38.9 % (13.2-15.2)
[2020-10-03] MEDS: cefTRIAXone/NS 2 GM/100 ML 2 GM/100 ML BAG IV SCH (13:21)
--- NOTE | 2020-10-03 14:03 | Progress Note ---
Assessment and Plan 50-year-old female with abdominal pain, UTI Images reviewed - no evidence for obstruction, perforated viscus, free fluid Plan: 1. reg diet 2. PPI 3. prn pain control 4. IV abx for UTI per 1' service 5. Urine cx pending 6. OOB/ambulate 7. bowel regimen No acute surgical intervention indicated at this time. Will s/o Thank you, please call with questions. Subjective Date of service: 10/03/20 Narrative: Pt seen and examined. Denies abdominal pain. Pain more localized to right flank area. No n/v. Tolerating reg diet. +Flatus. Objective Vital Signs - 12hr 10/03/20 10/03/20 10/03/20 05:11 07:51 09:11 Temperature 98.1 F 98.6 F Pulse Rate 57 L 71 Respiratory 18 18 18 Rate Blood Pressure 140/75 167/94 O2 Sat by Pulse 100 99 Oximetry 10/03/20 10/03/20 09:46 11:05 Temperature 98.3 F Pulse Rate 65 Respiratory 18 18 Rate Blood Pressure 148/83 O2 Sat by Pulse 100 97 Oximetry - General physical appearance Narrative Exam: Gen.: Awake, alert, oriented x3. No apparent distress ENT: Trachea midline. No lymphadenopathy. No scleral icterus or conjunctival pallor CV: S1, S2 present Respiratory: No audible wheezes Abdomen: Soft, nondistended, nontender. R flank TTP. No rebound, rigidity, guarding Extremities: No clubbing, cyanosis, edema - Labs 10/03/20 10:00 10/03/20 10:00 Diabetes panel 10/03/20 Range/Units 10:00 Sodium 131 L (137-145) mmol/L Potassium 3.5 L (3.6-5.0) mmol/L Chloride 101.0 (98-107) mmol/L Carbon Dioxide 22 (22-30) mmol/L BUN 5 L (7-17) mg/dL Creatinine 0.5 L (0.6-1.2) mg/dL Glucose 82 (65-100) mg/dL Calcium 9.7 (8.4-10.2) mg/dL Calcium panel 10/03/20 Range/Units 10:00 Calcium 9.7 (8.4-10.2) mg/dL Pituitary panel 10/03/20 Range/Units 10:00 Sodium 131 L (137-145) mmol/L Potassium 3.5 L (3.6-5.0) mmol/L Chloride 101.0 (98-107) mmol/L Carbon Dioxide 22 (22-30) mmol/L BUN 5 L (7-17) mg/dL Creatinine 0.5 L (0.6-1.2) mg/dL Glucose 82 (65-100) mg/dL Calcium 9.7 (8.4-10.2) mg/dL Adrenal panel 10/03/20 Range/Units 10:00 Sodium 131 L (137-145) mmol/L Potassium 3.5 L (3.6-5.0) mmol/L Chloride 101.0 (98-107) mmol/L Carbon Dioxide 22 (22-30) mmol/L BUN 5 L (7-17) mg/dL Creatinine 0.5 L (0.6-1.2) mg/dL Glucose 82 (65-100) mg/dL Calcium 9.7 (8.4-10.2) mg/dL
[2020-10-03 14:28] LABS: Anisocytosis 1+; Band Neutrophils # (Manual) 0.3 K/mm3; Hypochromasia 1+; Poikilocytosis Few; Total Cells Counted 100
[2020-10-03 14:29] LABS: Large Platelets Few; Platelet Estimate Consistent w Auto
[2020-10-03] MEDS ORDERED: POTASSIUM CHLORIDE ER 10 MEQ TAB PO NR (16:50)
[2020-10-03] MEDS: oxyCODONE /ACETAMINOPHEN 5-325MG TAB PO PRN ×2 (19:15→20:11)
[2020-10-03] MEDS: cloNIDine 0.1 MG TAB PO SCH (23:48)
[2020-10-04] MEDS ORDERED: hydrALAZINE 20 MG/1 ML INJ IV ONE (05:25)
[2020-10-04 05:47] LABS: Hematocrit 28.7 % (30.3-42.9); Hemoglobin 9.1 gm/dl (10.1-14.3); Mean Corpuscular HGB Conc 32 % (30-34); Mean Corpuscular Volume 74 fl (79-97); Platelet Count 383 K/mm3 (140-440); Red Blood Count 3.88 M/mm3 (3.65-5.03)
[2020-10-04] MEDS: ACETAMINOPHEN 325 MG TAB PO PRN (06:09)
[2020-10-04] MEDS: LISINOPRIL 20 MG TAB PO SCH (09:28)
[2020-10-04] MEDS: cefTRIAXone/NS 2 GM/100 ML 2 GM/100 ML BAG IV SCH (09:29)
[2020-10-04] MEDS: PANTOPRAZOLE 40 MG TAB PO SCH (09:29)
[2020-10-04] MEDS: HYDROmorphone 1 MG/1 ML INJ IV PRN (09:34)
[2020-10-04 10:20] LABS: Total Cells Counted 100
[2020-10-04 10:21] LABS: Anisocytosis 3+; Hypochromasia 1+; Platelet Estimate Consistent w Auto
[2020-10-04 11:50] VITALS: BP 143/83
[2020-10-04] MEDS ORDERED: amLODIPine 10 MG TAB PO SCH (14:00)
--- NOTE | 2020-10-04 14:41 | Discharge Summary ---
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 Reason for admission: Abdominal pain/possible partial small bowel obstruction/UTI Condition: Stable Pertinent studies: CT abdomen and pelvis; prominent loops of fluid-filled small bowel right lower quadrant, may represent low-grade obstruction or enteritis no pneumatosis or free air, enlarged globular uterus[patient advised to see her private dynamics ax developer upon discharge] patient advised to see private dynamics ax developer upon discharge Abdominal x-ray; gas-distended loop of suspected distal ileum within the right lower abdomen not significantly changed from recent CT Hospital course: 50-year-old female patient with significant past medical history of hypertension was admitted through emergency room with abdominal pain mainly right lower quadrant radiating to suprapubic area and sometimes to the back for the last 4 days. Patient gives history of colonoscopy and endoscopy 1 week prior to admission for work-up of anemia requiring blood transfusion. Initial work-up in the emergency room with CT abdomen and pelvis show suspected partial small bowel obstruction, patient was admitted placed n.p.o. status subsequently evaluated by surgeon, surgeon after reviewing the imaging study and evaluating the patient feels that there was no evidence of partial small bowel obstruction, patient's urine analysis is consistent with UTI, patient has sepsis due to UTI, with findings of leukocytosis, tachycardia, urine analysis positive for UTI and patient has urinary symptoms. started on empiric antibiotics. Urine cultures were negative to date.Patient was started on clear liquids and advance the diet ultimately surgeon has cleared for discharge and follow-up as outpatient. Today patient is comfortable no new complaints vital signs stable physical examination prior to discharge did not show any new findings. Stable at discharge. Final diagnosis: --Urinary tract infection; Current Visit: Yes Status: Acute --Sepsis due to UTI: Current Visit: Yes Status: Acute Leukocytosis, tachycardia, urinary tract infection per UA Symptoms improved with antibiotics --Possible partial small bowel obstruction[ruled out] Current Visit: Yes Status: Acute --Leukocytosis; Current Visit: Yes Status: Acute --Hypokalemia; resolved Current Visit: Yes Status: Acute --Severe malnutrition/hypoalbuminemia Current Visit: Yes Status: Chronic --Nicotine dependence Current Visit: Yes Status: Chronic Smoking cessation counseling, supportive care, Cleared by surgery, stable at discharge Disposition: DC-01 TO HOME OR SELFCARE Final Discharge Diagnosis (Prints w/discharge instructions): Urinary tract infection. Possible partial small bowel obstruction. Ruled out by surgeon[no obstruction noted]. Leukocytosis/probably due to UTI. Hypokalemia/resolved. Severe protein calorie malnutrition. Hypoalbuminemia. Nicotine dependence Time spent for discharge: 35 min Core Measure Documentation - Palliative Care Palliative Care/ Comfort Measures: Not Applicable - Core Measures Any of the following diagnoses?: none Exam - Constitutional Vitals: Temp Pulse Resp BP Pulse Ox 98.3 F 64 16 143/83 100 10/04/20 11:42 10/04/20 11:42 10/04/20 11:42 10/04/20 11:42 10/04/20 11:42 General appearance: Present: no acute distress, well-nourished - EENT Eyes: Present: PERRL, EOM intact - Neck Neck: Present: supple, normal ROM - Respiratory Respiratory effort: normal Respiratory: bilateral: diminished, negative: rales, rhonchi, wheezing - Cardiovascular Rhythm: regular Heart Sounds: Present: S1 & S2 - Extremities Extremities: no ischemia, No edema - Abdominal General gastrointestinal: Present: soft, non-tender, non-distended, normal bowel sounds - Integumentary Integumentary: Present: clear, warm - Musculoskeletal Musculoskeletal: strength equal bilaterally - Psychiatric Psychiatric: appropriate mood/affect - Neurologic Neurologic: moves all extremities Plan Activity: advance as tolerated Diet: other (Full liquid diet, advance as tolerated) Additional Instructions: Continue full liquids, advance the diet as tolerated. If you have worsening symptoms contact MD and go to emergency room as needed Follow up with: PRIMARY CARE,MD [Primary Care Provider] - 7 Days Prescriptions: cloNIDine [Catapres] 0.1 mg PO QHS #14 tablet levoFLOXacin [Levaquin] 750 mg PO QDAY #5 tablet oxyCODONE /ACETAMINOPHEN [Percocet 5/325 mg] 1 tab PO Q12H PRN #10 tablet PRN Reason: Pain, Moderate (4-6) Pantoprazole [Protonix TAB] 40 mg PO QDAC #30 tablet
== END 2020-10-04 16:45 | disposition home or self-care (01) | DRG 391 ==
LOC: ED 11:28 → 3A 16:25 → 3B-SURG 10-02 16:52
PROVIDERS: ADMIT Internal Medicine; ATTEND Internal Medicine
DX: K52.9 Noninfective gastroenteritis and colitis, unspecified (principal); E43 Unspecified severe protein-calorie malnutrition; N39.0 Urinary tract infection, site not specified; F17.213 Nicotine dependence, cigarettes, with withdrawal; K56.7 Ileus, unspecified; I10 Essential (primary) hypertension; G43.909 Migraine, unspecified, not intractable, without status migrainosus; D72.829 Elevated white blood cell count, unspecified; E87.6 Hypokalemia; Z68.24 Body mass index [BMI] 24.0-24.9, adult; Z82.49 Family history of ischemic heart disease and other diseases of the circulatory system; Z83.3 Family history of diabetes mellitus; Z71.6 Tobacco abuse counseling; Z79.899 Other long term (current) drug therapy
CPT/HCPCS: 36415; 74018; 74176; 80048; 80076; 80307; 81001; 83690; 83735; 85007; 85025; 85027; 87086; 93005; 96365; 96375; 96376; G0378; J0360; J0696; J1170; J2270; J2405; J3480; J7030